=== PATIENT | male | born 1980 | race Caucasian/White ===

== ENCOUNTER 2017-11-29 05:26 | Emergency (ER) | payer SELFPAY ==
[2017-11-29] MEDS ORDERED: Adacel (T-DAP) 0.5 ML VIAL ONE (05:39)
[2017-11-29] MEDS ORDERED: Lidocaine 1% (PF) 30 ML VIAL ONE (05:39)
== END 2017-11-29 06:12 | disposition home or self-care (01) ==
LOC: ERS 05:26
DX: S81.812A Laceration without foreign body, left lower leg, initial encounter (principal); F17.200 Nicotine dependence, unspecified, uncomplicated; Z71.6 Tobacco abuse counseling; W17.89XA Other fall from one level to another, initial encounter
CPT/HCPCS: 12001; 90471; 90715; 99406; J2001

== ENCOUNTER 2025-10-26 07:11 | Emergency (ER) | payer OTHER, SELFPAY ==
[2025-10-26] MEDS ORDERED: Famotidine/PF 20 mg/2ml Vial ONE (07:23)
[2025-10-26] MEDS ORDERED: diphenhydrAMINE 50 MG/ML VIAL ONE (07:24)
[2025-10-26 08:00] LABS: #Basophils 0.05 10x3/uL (0.0-0.2); #Eosinophils 0.10 10x3/uL (0.0-0.7); #Monocytes 0.71 10x3/uL (0.11-0.59); #Neutrophils 1.87 10x3/uL (1.40-6.50); %Basophils 1.1 % (0.0-1.0); %Eosinophils 2.2 % (0.0-10.0); %Lymphocytes 40.7 % (21.0-51.0); %Monocytes 15.3 % (0.0-10.0); %Neutrophils 40.3 % (42.0-75.0); Hematocrit 39.9 % (42.0-52.0); Hemoglobin 13.7 g/dL (14.0-18.0); Mean Corpuscular Hemoglobin 33.6 pg (27.0-31.0); Mean Corpuscular Volume 97.8 fL (78.0-98.0); Platelet Count 167 10x3/uL (130-400); Red Blood Cell (RBC) Count 4.08 mill/uL (4.70-6.10); White Blood Cell (WBC) Count 4.64 10x3/uL (4.8-10.8)
[2025-10-26 08:14] LABS: ALT (SGPT) 81 U/L (Less than 45); AST (SGOT) 96 U/L (11-34); Albumin 4.7 g/dL (3.1-4.5); Alkaline Phosphatase 50 U/L (40-110); Anion Gap 17 mmol/L (10-20); BUN (Urea Nitrogen) Less than 4 mg/dL (8.9-20.6); Bilirubin, Total 0.4 mg/dL (0.3-1.2); Calc. Creatinine Clearance 0 mL/min (70-130); Calcium 9.3 mg/dL (7.8-10.44); Carbon Dioxide 24 mmol/L (22-29); Chloride 98 mmol/L (98-107); Globulin 3.3 g/dL (2.4-3.5); Glucose 103 mg/dL (70-105); Potassium 4.1 mmol/L (3.5-5.1); Sodium 135 mmol/L (136-145)
== END 2025-10-26 09:14 | disposition home or self-care (01) ==
LOC: ERS 07:11
DX: T78.40XA Allergy, unspecified, initial encounter (principal); F17.210 Nicotine dependence, cigarettes, uncomplicated
CPT/HCPCS: 80053; 85025; 96374; 96375; J1200; J1308; J2919